=== PATIENT | male | born 1925 | race American Indian/Alaskan Native ===

== ENCOUNTER 2016-08-29 10:16 | Outpatient (CLI) | payer MEDICARE ==
--- NOTE | 2016-08-29 14:57 | Nuclear Medicine Report ---
BONE SCAN: History: Prostate cancer. Linear uptake at the level of L2 has resolved since 11/13/15 consistent with a healed fracture. No new areas of abnormal increased uptake are appreciated. Please note that evaluation of the pelvis is limited secondary to a large amount of contrast agent within the bladder. The patient was unable to void. Contamination in the right antecubital fossa and perineum are noted. IMPRESSION: No evidence for bony metastasis. Healed L2 superior endplate fracture since 11/13/15.
== END 2016-08-29 10:17 | disposition home or self-care (01) ==
LOC: NM 10:16
PROVIDERS: ATTEND Urology
DX: C61 Malignant neoplasm of prostate (principal); I25.10 Atherosclerotic heart disease of native coronary artery without angina pectoris; I73.9 Peripheral vascular disease, unspecified; I10 Essential (primary) hypertension
CPT/HCPCS: 78306; A9503